=== PATIENT | female | born 1975 | race Caucasian/White ===

== ENCOUNTER 2021-12-30 06:22 | Emergency (ER) | payer OTHER ==
[~2021-12-30] VITALS: Ht 175.3 cm; Wt 90.7 kg
[~2021-12-30 06:22] MED LIST: FLUOXETINE HCL40 MG PO; MACROBID 100 M100 MG PO
[2021-12-30] MEDS ORDERED: CITALOPRAM HBR40 MG PO (06:30)
[2021-12-30] MEDS ORDERED: CYCLOBENZAPRINE10 MG PO (06:39)
[2021-12-30] MEDS ORDERED: BENZONATATE200 MG PO (06:39)
[2021-12-30] MEDS ORDERED: VENTOLIN HFA18 GM INH (06:39)
== END 2021-12-30 07:48 | disposition home or self-care (01) ==
LOC: ED 06:22
DX: J10.1 Influenza due to other identified influenza virus with other respiratory manifestations (principal); Z79.899 Other long term (current) drug therapy; Z20.822 Contact with and (suspected) exposure to COVID-19
CPT/HCPCS: 87502; 96372; 99283; A9270; J1885; U0003

== ENCOUNTER 2023-09-06 07:50 | Day surgery (SDC) | payer OTHER ==
[2023-09-04 14:25] VITALS: BP 110/75
[~2023-09-06] VITALS: Ht 175.3 cm; Wt 75.5 kg
[~2023-09-06 07:50] MED LIST changes: +BENZONATATE200 MG PO; +CITALOPRAM HBR40 MG PO; +CYCLOBENZAPRINE10 MG PO; +DOTTI1 EAC4 TD; +IBLOOD GLUCOSE TEST STRIP 1 EA TEST VI PRN; +LACTATED RINGER'S 1,000 ML IV SCH; +LIDOCAINE HCL 1% 5 ML SDV INJ ONE; +NEURONTIN300 MG PO; +VENTOLIN HFA18 GM INH; +propofoL 200 MG/20 ML VIAL ONE
[2023-09-06 08:01] VITALS: BP 117/75
[2023-09-06] MEDS ORDERED: DESVENLAFAXINE50 M3 PO (08:03)
[2023-09-06] MEDS ORDERED: ATROPINE SULFATE 1 MG/ML VIAL ONE (08:47)
--- NOTE | 2023-09-06 09:14 | NUR ---
09/06/23 0914 Varghese Brown 0908: PT ARRIVED TO PACU VIA STRETCHER. PT HAS ORAL AIRWAY IN PLACE AND A MASK IN PLACE ON 10L. PT NON ARROUSABLE. PT 100% ON 10L.
[2023-09-06 09:54] VITALS: BP 112/79
--- NOTE | 2023-09-06 10:46 | OR ---
[facility] [address], [place] [address] Signed DATE OF OPERATION: 09/06/2023 SURGEON: Shasta Cuadra MD PREOPERATIVE DIAGNOSES: 1. Maternal grandfather with colon cancer. 2. Lateral internal anal sphincterotomy in 2007. 3. 3 mm rectal hyperplastic polyp in 2007. POSTOPERATIVE DIAGNOSES: 1. 3 mm polyp at 5 cm of rectum. 2. 5 mm polyp at periappendiceal orifice/cecum. 3. Minimal sigmoid diverticulosis. PROCEDURE: Colonoscopy with hot biopsy. ESTIMATED BLOOD LOSS: None. INDICATIONS: Vicki is a 48-year-old female, asked to see me for her initial screening colonoscopy. We did help her with a colonoscopy back in 2007 because she was having anal pain. She had an anterior midline anal fissure. This required a lateral internal anal sphincterotomy. She also had a tiny hyperplastic polyp in the rectum that we removed. In addition, her maternal grandfather had colon cancer sometime later in his life. Vicki says she has no lower GI complaints currently. In the office, I had given her a pamphlet on colonoscopy. We had reviewed the nature of the test. There is risk including, but not limited to gas bloating, crampy abdominal pain, bleeding, perforation requiring surgery, and missed diagnosis. We also reviewed the written instructions for the bowel prep line by line. Also, Vicki does use marijuana on a daily basis. Consequently, we did ask for monitored anesthesia care with propofol infusion. That proved to be a cantu decision. She had expressed understanding and wished to proceed. DESCRIPTION OF PROCEDURE: Vicki was taken into our endoscopy suite and placed in the left lateral decubitus position. She was given monitored anesthesia care with propofol infusion per our nurse saw cleaner. A digital rectal exam was performed and I could just see a little scarring in the left lateral position from her sphincterotomy. Her sphincter feels overall intact. After the propofol of course there was decreased sphincter tone. There were no Electronically Signed By: SHASTA CUADRA MD 09/06/23 1046 PATIENT NAME: VICKI SEGAL OPERATIVE REPORT DATE OF : 75 REPORT #: [id number] PHYSICIAN: SHASTA CUADRA MD PCP: CHAKA HODGE REPORT IS CONFIDENTIAL AND NOT TO BE RELEASED WITHOUT AUTHORIZATION [facility] [address], [place] [address] Signed masses. The adult colonoscope was introduced and advanced all around into the cecum under direct visualization of the camera without difficulty. Her prep was quite excellent. We could easily see the appendiceal orifice and the ileocecal valve. She had a 5 mm polyp just to the side of her appendiceal orifice. It was easily removed with hot biopsy forceps. The scope was then slowly withdrawn. We had taken several pictures throughout for photodocumentation. She does have some diverticula in the sigmoid colon. They are small in size, few in number and scattered about. Once in the rectum, she had a tiny 3 mm polyp at about 5 cm. It was easily removed with the hot biopsy forceps. Upon retroflexion of the scope, really I cannot see any pathology above the anal canal. After this, the gas was suctioned out and the colonoscope removed. Vicki tolerated the procedure quite well. RECOMMENDATIONS: I will see Vicki back in my office in 7 to 14 days to review her results. She will likely be on the five year plan due to her family history. Shasta Cuadra MD ALB/MODL /[id number] cc: AILYN Vazquez MD Copies: CHAKA HODGE ANDREW L MD ~ Electronically Signed By: SHASTA CUADRA MD 09/06/23 1046 PATIENT NAME: VICKI SEGAL OPERATIVE REPORT DATE OF : 75 REPORT #: [id number] PHYSICIAN: SHASTA CUADRA MD PCP: CHAKA HODGE REPORT IS CONFIDENTIAL AND NOT TO BE RELEASED WITHOUT AUTHORIZATION
== END 2023-09-06 10:05 | disposition home or self-care (01) ==
LOC: DS 07:50
PROVIDERS: ATTEND Colon & Rectal Surgery
PROC: 0DBH8ZZ Excision of Cecum, Via Natural or Artificial Opening Endoscopic (ICD-10-PCS; principal; 2023-09-06 09:15)
DX: Z12.11 Encounter for screening for malignant neoplasm of colon (principal); D12.0 Benign neoplasm of cecum; K63.5 Polyp of colon; K57.30 Diverticulosis of large intestine without perforation or abscess without bleeding; Z86.010 Personal history of colon polyps; Z80.0 Family history of malignant neoplasm of digestive organs
CPT/HCPCS: 00811; J0461; J2704; J7121